=== PATIENT | female | born 1975 | race Caucasian/White ===

== ENCOUNTER 2016-08-06 20:46 | Emergency (ER) | payer BC ==
[~2016-08-06] VITALS: Ht 165.1 cm; Wt 83.5 kg
[~2016-08-06 20:46] MED LIST: ALBUAER2 INH; FLVHFAUNK INH
[2016-08-06 20:49] VITALS: TEMP 36.9; Ht 165.1 cm; Wt 83.5 kg
--- NOTE | 2016-08-06 21:30 | DIAGNOSTIC IMAGING REPORT ---
LEFT KNEE 3 VIEWS CLINICAL HISTORY: Left knee injury. FINDINGS: AP, crosstable lateral, and sunrise views of the left knee are obtained. No prior studies are available for comparison at the time of dictation. The skeletal structures are well mineralized. No fracture is seen. The joint spaces of the knee are preserved. There is a superior patellar enthesophyte. No large joint effusion is identified. There are venous varicosities present within the lateral aspect of the thigh. IMPRESSION: No acute bony abnormality is seen in the left knee. Electronically signed by: Nadeem Grimaldo M.D. 08/06/2016 9:28 PM Dictated Date/Time: 08/06/2016 9:27 PM
--- NOTE | 2016-08-06 21:38 | EMERGENCY ROOM VISIT NOTE ---
History First contact with patient: 20:53 Chief Complaint: KNEEPAIN Stated Complaint: FELL ON KNEE,SWELLING History of Present Illness The patient is a 40 year old female who presents to the Emergency Room with complaints of left knee pain after she fell onto the knee this morning. She reports slipping on snow and falling on a porch. This happened around 6 AM this morning. The patient reports that she has walked on the leg all day long, and now the pain has increased to an 8 out of 10. She denies any pain extending into the leg or thigh. She denies any paresthesias or numbness of the left lower extremity. She denies any prior history of left knee injuries. Review of Systems 10 system review was performed and was negative except for pertinent positives and negatives as indicated in history of present illness Past Medical/Surgical History Medical Problems: (1) Asthma, Unspecified (2) Gestational Carrier Surgical Problems: (1) No history of previous surgery Family History No significant family history Social History Smoking Status: Never Smoker Alcohol Use: none Marital Status: Housing Status: lives with family Occupation Status: employed Current/Historical Medications Scheduled Albuterol (Ventolin), 2 PUFFS INH QID Fluticasone Propionate (Flovent Hfa Unknown Dose), 1 PUFF INH HS Allergies Coded Allergies: No Known Allergies (Verified , 08/06/16) Physical Exam Vital Signs Date Time Temp Pulse Resp B/P Pulse Ox O2 Delivery O2 Flow Rate FiO2 08/06/16 20:49 36.9 100 16 154/90 97 Room Air Physical Exam CONSTITUTIONAL: Healthy and well nourished. Alert and oriented X 3 with positive affect. HEENT: Normocephalic, atraumatic. Pupils equal, round and reactive. NECK: Full active range of motion without discomfort. MUSCULOSKELETAL: Examination of the left knee shows mild anterior edema of with minimal anteromedial ecchymosis. She has generalized tenderness to the medial joint line. No focal tenderness to the lateral joint line. Range of motion worsens her discomfort. Collateral ligaments are intact. No popliteal masses. Pedal pulses are intact. INTEGUMENTARY: No rash or other significant dermatologic conditions noted. NEUROLOGIC: Left lower extremity is sensory intact. Medical Decision & Procedures ER Provider Diagnostic Interpretation: My interpretation of left knee x-rays does not show any obvious fractures or dislocation. Radiologist report is as follows: LEFT KNEE 3 VIEWS CLINICAL HISTORY: Left knee injury. FINDINGS: AP, crosstable lateral, and sunrise views of the left knee are obtained. No prior studies are available for comparison at the time of dictation. The skeletal structures are well mineralized. No fracture is seen. The joint spaces of the knee are preserved. There is a superior patellar enthesophyte. No large joint effusion is identified. There are venous varicosities present within the lateral aspect of the thigh. IMPRESSION: No acute bony abnormality is seen in the left knee. ED Course Patient history and physical exam were performed. Nurse's notes were reviewed. The patient refused any analgesics on initial exam. X-rays of the left knee were normal. The patient elected using a knee immobilizer without crutches. She was encouraged to intermittently apply ice to the knee for swelling. Ibuprofen and Tylenol in alternating fashion if needed for additional pain relief. She was instructed to follow-up with orthopedics for any persistent pain. The patient was happy with plan of care, voice understanding of all discharge instructions, and rated her pain a 4 out of 10 at the time of discharge. Medical Decision Impression Primary Impression: Contusion of left knee Additional Impression: Fall due to slipping on ice or snow Departure Information Referrals No Doctor, Assigned (PCP) Patient Instructions [facility] Problem Qualifiers Primary Impression: Contusion of left knee Encounter type: initial encounter Qualified Codes: S80.02XA - Contusion of left knee, initial encounter Additional Impression: Fall due to slipping on ice or snow Encounter type: initial encounter Qualified Codes: W00.9XXA - Unspecified fall due to ice and snow, initial encounter
[2016-08-06 21:49] VITALS: BP 142/93; PULSE 91; O2SAT 99
== END 2016-08-06 21:53 | disposition home or self-care (01) ==
LOC: C.EDB 20:47 → C.EDD 21:53
DX: S80.02XA Contusion of left knee, initial encounter (principal); W01.0XXA Fall on same level from slipping, tripping and stumbling without subsequent striking against object, initial encounter; J45.909 Unspecified asthma, uncomplicated

== ENCOUNTER → 2017-09-08 | Outpatient (CLI) | payer BC ==
[2017-09-08 15:52] LABS: BASO % 0.5 %; BASO ABS # 0.04 K/uL (0-0.2); EOS % 7.7 %; EOS ABS # 0.64 K/uL (0-0.5); HEMOGLOBIN 13.2 g/dL (12.0-16.0); IG# 0.02 K/uL (0.00-0.02); LYMPH % 31.8 %; LYMPH ABS # 2.65 K/uL (1.2-3.4); MEAN CORPUSCULAR HEMOGLOBIN 29.9 pg (25-34); MEAN CORPUSCULAR HGB CONC 34.7 g/dl (32-36); MEAN PLATELET VOLUME 9.5 fL (7.4-10.4); MONO % 7.4 %; MONO ABS # 0.62 K/uL (0.11-0.59); NEUT % 52.4 %; NEUT ABS # 4.37 K/uL (1.4-6.5); PLATELET COUNT 314 K/uL (130-400); RED CELL DISTRIBUTION WIDTH CV 12.9 % (11.5-14.5); RED CELL DISTRIBUTION WIDTH SD 40.8 fL (36.4-46.3); WHITE BLOOD COUNT 8.34 K/uL (4.8-10.8)
[2017-09-08 17:12] LABS: HEP C IGG 13 YRS+OLDER_RFLX NEG (NEG)
== END | disposition home or self-care (01) ==
LOC: C.LAB1850 14:32
PROVIDERS: ATTEND Obstetrics & Gynecology
DX: Z01.419 Encounter for gynecological examination (general) (routine) without abnormal findings (principal); Z31.69 Encounter for other general counseling and advice on procreation

== ENCOUNTER → 2017-09-08 | Outpatient (CLI) | payer BC | END | disposition home or self-care (01) | LOC: C.PAPS 11:17 | PROVIDERS: ATTEND Obstetrics & Gynecology | DX: Z01.419 Encounter for gynecological examination (general) (routine) without abnormal findings (principal) ==

== ENCOUNTER → 2017-10-19 | Outpatient (CLI) | payer BC ==
[2017-10-19 12:44] LABS: FOLLICLE STIMULAT HORMONE 12.01 IU/L
== END | disposition home or self-care (01) ==
LOC: C.LAB1850 11:25
PROVIDERS: ATTEND Obstetrics & Gynecology Reproductive Endocrinology
DX: N97.9 Female infertility, unspecified (principal)

== ENCOUNTER → 2017-10-27 | Outpatient (CLI) | payer BC ==
[2017-10-27 17:00] LABS: LUTEINIZING HORMONE 9.11 IU/L
[2017-10-27 17:02] LABS: FOLLICLE STIMULAT HORMONE 9.41 IU/L
== END | disposition home or self-care (01) ==
LOC: C.LAB1850 15:37
PROVIDERS: ATTEND Obstetrics & Gynecology Reproductive Endocrinology
DX: N97.9 Female infertility, unspecified (principal)

== ENCOUNTER → 2017-11-11 | Outpatient (CLI) | payer BC ==
[2017-11-11 14:57] LABS: FOLLICLE STIMULAT HORMONE 5.21 IU/L; LUTEINIZING HORMONE 2.42 IU/L
== END | disposition home or self-care (01) ==
LOC: C.LAB1850 13:31
PROVIDERS: ATTEND Obstetrics & Gynecology Reproductive Endocrinology
DX: N97.9 Female infertility, unspecified (principal)

== ENCOUNTER → 2017-11-16 | Outpatient (CLI) | payer BC ==
[2017-11-16 11:18] LABS: FOLLICLE STIMULAT HORMONE 1.99 IU/L; LUTEINIZING HORMONE 1.66 IU/L
== END | disposition home or self-care (01) ==
LOC: C.LAB1850 10:19
PROVIDERS: ATTEND Obstetrics & Gynecology Reproductive Endocrinology
DX: N97.9 Female infertility, unspecified (principal)